=== PATIENT | female | born 1970 | race African-American/Black ===

== ENCOUNTER 2016-06-25 01:40 | Emergency (ER) | payer OTHER ==
[~2016-06-25] VITALS: Ht 160 cm; Wt 91.2 kg
[~2016-06-25 01:40] MED LIST: PEPCID; TYLENOL
[2016-06-25 01:47] VITALS: BP 120/76
--- NOTE | 2016-06-25 04:20 | NUR ---
PATIENT LEFT WITHOUT BEING SEEN BY DR. Domínguez. NO FURTHER CARE PROVIDED FOR PATIENT.
== END 2016-06-25 04:20 | disposition left against medical advice (07) ==
LOC: MED 01:40
DX: M54.5 Low back pain (principal); Z53.21 Procedure and treatment not carried out due to patient leaving prior to being seen by health care provider

== ENCOUNTER 2016-06-25 12:05 | Emergency (ER) | payer OTHER ==
[~2016-06-25] VITALS: Ht 160 cm; Wt 90.7 kg
[2016-06-25 12:31] VITALS: BP 120/51
--- NOTE | 2016-06-25 12:46 | NUR ---
Patient taken to bed 08 via wheelchair per tech.
--- NOTE | 2016-06-25 12:50 | NUR ---
PATIENT PRESENTS TO ED WITH C/O MEDIAL ABD PAIN AND LOWER BACK PAIN X2 WEEKS WITH VOMITING; DENIES DIARRHEA; SKIN IS PINK/WARM/DRY; AAOX4 WITH EVEN AND STEADY GAIT; LUNGS CLEAR BL; HR EVEN AND REGULAR; PT DENIES ANY FEVER, CP, SOB, OR COUGH AT THIS TIME; PATIENT STATES PAIN OF 10/10 AT THIS TIME; VSS; PATIENT POSITIONED FOR COMFORT; HOB ELEVATED; BEDRAILS UP X2; BED DOWN. ER MD MADE AWARE OF PT STATUS.
--- NOTE | 2016-06-25 13:12 | NUR ---
Dr. Howard evaluating patient at bedside.
[2016-06-25] MEDS ORDERED: KETOROLAC 60 MG/2 ML VIAL IM ONE (13:15)
[2016-06-25] MEDS ORDERED: ONDANSETRON 4 MG ODT PO ONE (13:15)
--- NOTE | 2016-06-25 13:26 | NUR ---
PT UNABLE TO PROVIDE URINE SAMPLE AT THIS TIME
--- NOTE | 2016-06-25 13:45 | NUR ---
POST TORADOL ADMINISTRATION DR WILLIAMSON NOTIFIED OF PT STILL C/O PAIN 12/15, IV WILL BE STARTED PER
[2016-06-25] MEDS ORDERED: MORPHINE SULFATE 4 MG/ML SYR IVP ONE (13:50)
[2016-06-25] MEDS ORDERED: NACL 0.9% 1,000 ML IV ONE (13:50)
--- NOTE | 2016-06-25 14:51 | NUR ---
AAO PT AMBULATES TO THE RESTROOM FOR URINE SAMPLE
--- NOTE | 2016-06-25 15:08 | NUR ---
PER PT "FEELS BETTER", NO C/O PAIN OR N/V, WANTS TO FINISH FLUIDS, NOTIFIED
[2016-06-25 15:46] VITALS: BP 129/86
--- NOTE | 2016-06-25 15:46 | NUR ---
Patient discharged with v/s stable. Written and verbal after care instructions given and explained. Patient alert, oriented and verbalized understanding of instructions. Ambulatory with steady gait. All questions addressed prior to discharge. ID band removed. Patient advised to follow up with PMD. Rx of MOTRIN,ZOFRAN,NORCO given. Patient educated on indication of medication including possible reaction and side effects. Opportunity to ask questions provided and answered.
== END 2016-06-25 15:46 | disposition home or self-care (01) ==
LOC: MED 12:05
DX: M54.5 Low back pain (principal); R10.13 Epigastric pain; R11.2 Nausea with vomiting, unspecified
CPT/HCPCS: 81002; 81025; 96361; 96372; 96374; 99284; J1885; J2270; J7030; S0119

== ENCOUNTER 2017-10-10 10:16 | Emergency (ER) | payer OTHER ==
[~2017-10-10] VITALS: Ht 160 cm; Wt 86.6 kg
[2017-10-10 10:19] VITALS: BP 128/73
--- NOTE | 2017-10-10 10:19 | NUR ---
PT AMBULATES TO BED 2
--- NOTE | 2017-10-10 10:30 | NUR ---
c/o epigastric pain with n/v x 2 wk---unable to tolerate po's last bm this am no straining , no watery/loose stools.; SKIN IS INTACT, PINK/WARM/DRY; AAOX4, PERRL, WITH EVEN AND STEADY GAIT; LUNGS CLEAR BL, BREATHING UNLABORED; HR EVEN AND REGULAR, BL PERIPHERAL PULSES PRESENT; BS ACTIVE X4, NO TENDERNESS TO PALPATION, NO HEPATOSPLENOMEGALLY PALPATED, RESONANT TO PERCUSSION; PT DENIES ANY FEVER, CP, SOB, OR COUGH AT THIS TIME; PT STATES 8/10 PAIN EPIGASTRIC AT THIS TIME; VSS; PATIENT POSITIONED FOR COMFORT; HOB ELEVATED; BEDRAILS UP X2; BED DOWN.
--- NOTE | 2017-10-10 10:43 | NUR ---
DR MICHAEL EVALUATING PT AT BEDSIDE
[2017-10-10] MEDS ORDERED: NACL 0.9% 1,000 ML IV SCH (11:01)
[2017-10-10] MEDS ORDERED: FAMOTIDINE 20 MG/2 ML VIAL IVP ONE (11:05)
[2017-10-10] MEDS ORDERED: MORPHINE SULFATE 4 MG/ML SYR IVP ONE ×2 (11:05→12:15)
[2017-10-10] MEDS ORDERED: ONDANSETRON 4 MG/2 ML VIAL IVP ONE ×2 (11:05→12:15)
--- NOTE | 2017-10-10 12:00 | NUR ---
edmd aware pt still vomiting and in pain
--- NOTE | 2017-10-10 12:42 | NUR ---
edmd made aware pt still having discomfort in abd
[2017-10-10 13:01] LABS: BASOPHILS # (AUTO) 0.1 K/uL (0.00-0.22); BASOPHILS % (AUTO) 0.8 % (0.0-2.0); EOSINOPHILS % (AUTO) 0.1 % (0.0-4.0); HEMATOCRIT 43.2 % (36-48); HEMOGLOBIN 14.2 g/dL (12.0-16.0); LYMPHOCYTES # (AUTO) 3.5 K/uL (2.5-16.5); LYMPHOCYTES % (AUTO) 27.2 % (20.5-51.1); MEAN CORPUSCULAR HEMOGLOBIN 28 pg (27-31); MEAN CORPUSCULAR HGB CONC 33 g/dL (33-37); MEAN CORPUSCULAR VOLUME 85.1 fL (80-94); MONOCYTES # (AUTO) 1.2 K/uL (0.8-1.0); MONOCYTES % (AUTO) 9.7 % (1.7-9.3); NEUTROPHILS # (AUTO) 7.9 K/uL (1.8-7.7); NEUTROPHILS % (AUTO) 62.2 % (42.2-75.2); PLATELET COUNT (AUTO) 263 K/uL (140-450); RED BLOOD CELL COUNT(AUTO) 5.07 MIL/uL (4.20-5.40); RED CELL DISTRIBUTION WIDTH 14.9 % (11.6-13.7); WHITE BLOOD COUNT (AUTO) 12.7 K/uL (4.8-10.8)
[2017-10-10] MEDS ORDERED: HYDROmorphone PFS 2 MG/ML SYR IVP ONE (13:10)
[2017-10-10 13:19] LABS: ANION GAP 17.7 (8-16); CREATININE 1.2 mg/dL (0.6-1.3); POTASSIUM 3.7 mmol/L (3.5-5.1)
[2017-10-10 13:25] LABS: APPEARANCE,URINE HAZY (CLEAR); BILIRUBIN,URINE NEGATIVE (NEGATIVE); BLOOD, URINE 1+ (NEGATIVE); COLOR,URINE YELLOW (YELLOW); LEUKOCYTE ESTERASE ,URINE NEGATIVE (NEGATIVE); NITRITE, URINE NEGATIVE (NEGATIVE); UGLUCOSE NEGATIVE (NEGATIVE)
[2017-10-10 13:34] LABS: ALBUMIN 3.7 g/dL (3.4-5.0); TOTAL BILIRUBIN 0.5 mg/dL (0.0-1.0)
[2017-10-10 13:37] LABS: RBC,URINE 3-10 (FEW) /HPF (0-5); WBC,URINE 0-5 (RARE) /HPF (0-5)
[2017-10-10] MEDS ORDERED: METOCLOPRAMIDE 10 MG/2 ML INJ VIAL IVP ONE (14:05)
--- NOTE | 2017-10-10 14:51 | NUR ---
PATIENT TAKEN TO CT
[2017-10-10 15:45] VITALS: BP 129/88
--- NOTE | 2017-10-10 15:46 | NUR ---
Patient discharged with v/s stable. Written and verbal after care instructions given and explained. Patient alert, oriented and verbalized understanding of instructions. Ambulatory with steady gait. All questions addressed prior to discharge. ID band removed. Patient advised to follow up with PMD. Rx of ZOFRAN, NORCO, AND OMEPRAZOLE given. Patient educated on indication of medication including possible reaction and side effects. Opportunity to ask questions provided and answered.
== END 2017-10-10 15:46 | disposition home or self-care (01) ==
LOC: MED 10:16
DX: R10.13 Epigastric pain (principal); R11.2 Nausea with vomiting, unspecified
CPT/HCPCS: 36415; 74176; 80053; 81001; 81025; 83690; 85025; 96361; 96374; 96375; 96376; 99285; J1170; J2270; J2405; J2765; J3490; J7030; 96372; 99284

== ENCOUNTER 2018-04-16 21:45 | Emergency (ER) | payer OTHER ==
[~2018-04-16] VITALS: Ht 160 cm; Wt 90.7 kg
[2018-04-16 22:05] VITALS: BP 124/76
--- NOTE | 2018-04-16 23:18 | NUR ---
PT AMBULATED TO BED 9.
--- NOTE | 2018-04-16 23:27 | NUR ---
47/ F BIB SELF, C/O OF VOMITING X8 EPISODES X3 DAYS. PATIENT STATES, "I CANT KEEP FOOD OR WATER DOWN." PATIENT REPORTS DIARRHEA YESTERDAY X1. DENIES PAIN AT THIS TIME, HAD PAIN EARLIER IN THE DAY, PAIN WAS SHARP INTERMITTENT 10/10. ACTIVE BOWEL SOUNDS X4 QUADRANTS. BREATHING IS EVEN AND UNLABORED, CLEAR LUNGS SOUNDS, DENIES SOB OR CP. DENIES DYSURIA. A0X4, CLEAR SPEECH, STEADY GAIT, DENIES WEAKNESS OR DIZZINES. SAFETY PRECAUTIONS IN PLACE, AWAITING MD, WILL CONTINUE TO MONITOR.
[2018-04-16] MEDS ORDERED: ONDANSETRON 4 MG ODT PO ONE (23:55)
[2018-04-17] MEDS ORDERED: DICYCLOMINE HCL LIQUID 20 MG, ALUMINUM HYD/MAG/SIMETHICONE 30 ML, LIDOCAINE VISCOUS 2% ... PO ONE ×3 (00:15)
--- NOTE | 2018-04-17 00:30 | NUR ---
PT SITTING UP IN BED, VITALS STABLE. PT PAIN LEVEL IS 7/10 AT THIS TIME. ER MD MADE AWARE.
[2018-04-17] MEDS ORDERED: ONDANSETRON 4 MG/2 ML VIAL IVP ONE (00:35)
[2018-04-17] MEDS ORDERED: NACL 0.9% 1,000 ML IV ONE (00:35)
[2018-04-17] MEDS ORDERED: KETOROLAC 30 MG/ML VIAL IVP ONE (00:35)
[2018-04-17] MEDS ORDERED: MORPHINE SULFATE 4 MG/ML SYR IVP ONE (01:20)
--- NOTE | 2018-04-17 01:30 | NUR ---
PT IS SLYING IN BED, VITALS ARE STABLE.
[2018-04-17 01:46] LABS: BASOPHILS # (AUTO) 0.1 K/uL (0.00-0.22); BASOPHILS % (AUTO) 0.9 % (0.0-2.0); EOSINOPHILS % (AUTO) 0.1 % (0.0-4.0); HEMATOCRIT 42.5 % (36-48); HEMOGLOBIN 13.9 g/dL (12.0-16.0); LYMPHOCYTES # (AUTO) 3.7 K/uL (2.5-16.5); LYMPHOCYTES % (AUTO) 39.9 % (20.5-51.1); MEAN CORPUSCULAR HEMOGLOBIN 28 pg (27-31); MEAN CORPUSCULAR HGB CONC 33 g/dL (33-37); MEAN CORPUSCULAR VOLUME 85.6 fL (80-94); MONOCYTES # (AUTO) 0.7 K/uL (0.8-1.0); MONOCYTES % (AUTO) 7.1 % (1.7-9.3); NEUTROPHILS # (AUTO) 4.8 K/uL (1.8-7.7); PLATELET COUNT (AUTO) 314 K/uL (140-450); RED BLOOD CELL COUNT(AUTO) 4.97 MIL/uL (4.20-5.40); RED CELL DISTRIBUTION WIDTH 15.3 % (11.6-13.7); WHITE BLOOD COUNT (AUTO) 9.2 K/uL (4.8-10.8)
[2018-04-17 01:53] LABS: ANION GAP 10.5 (8-16); CARBON DIOXIDE 26.2 mmol/L (21-32); CREATININE 0.9 mg/dL (0.6-1.3); POTASSIUM 3.7 mmol/L (3.5-5.1)
[2018-04-17 01:58] LABS: ALBUMIN 3.7 g/dL (3.4-5.0); TOTAL BILIRUBIN 0.5 mg/dL (0.0-1.0)
[2018-04-17 02:30] VITALS: BP 128/74
--- NOTE | 2018-04-17 02:30 | NUR ---
Patient discharged with v/s stable. Written and verbal after care instructions given and explained. Patient alert, oriented and verbalized understanding of instructions. Ambulatory with steady gait. All questions addressed prior to discharge. ID band removed. Patient advised to follow up with PMD. Rx of PHENERGAN WAS given. Patient educated on indication of medication including possible reaction and side effects. Opportunity to ask questions provided and answered.
== END 2018-04-17 02:30 | disposition home or self-care (01) ==
LOC: MED 21:45
DX: R10.13 Epigastric pain (principal); R11.2 Nausea with vomiting, unspecified; R19.7 Diarrhea, unspecified
CPT/HCPCS: 36415; 80053; 81002; 81025; 83690; 85025; 96374; 96375; 99283; J1885; J2270; J2405; J7030; Q0162

== ENCOUNTER 2019-07-13 08:55 | Emergency (ER) | payer MEDICAID, OTHER ==
[~2019-07-13] VITALS: Ht 160 cm; Wt 93.9 kg
[2019-07-13 09:03] VITALS: BP 113/75
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
--- NOTE | 2019-07-13 09:47 | NUR ---
Dr. Barker is evaluating the patient at bedside.
[2019-07-13 10:19] VITALS: BP 113/75
--- NOTE | 2019-07-13 10:20 | NUR ---
Patient discharged with v/s stable. Written and verbal after care instructions given and explained. Patient alert, oriented and verbalized understanding of instructions. Ambulatory with steady gait. All questions addressed prior to discharge. ID band removed. Patient advised to follow up with PMD. Rx of FLEXERIL given. Patient educated on indication of medication including possible reaction and side effects. Opportunity to ask questions provided and answered.
== END 2019-07-13 10:20 | disposition home or self-care (01) ==
LOC: MED 08:55
DX: S33.5XXA Sprain of ligaments of lumbar spine, initial encounter (principal); Z98.890 Other specified postprocedural states; V49.60XA Unspecified car occupant injured in collision with unspecified motor vehicles in traffic accident, initial encounter; Y93.89 Activity, other specified; Y92.89 Other specified places as the place of occurrence of the external cause; Y99.8 Other external cause status
CPT/HCPCS: 99283

== ENCOUNTER 2021-08-07 07:44 | Emergency (ER) | payer MEDICAID ==
[~2021-08-07] VITALS: Ht 157.5 cm; Wt 111.1 kg
[2021-08-07 07:54] VITALS: BP 143/63
--- NOTE | 2021-08-07 07:59 | NUR ---
VILMA. HANDED ON URINE CUP.
--- NOTE | 2021-08-07 08:08 | NUR ---
PT CAN'T PROVIDE URINE AT THIS TIME.
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
--- NOTE | 2021-08-07 08:44 | NUR ---
PT SIVA TO [facility]
[2021-08-07] MEDS ORDERED: KETOROLAC 60 MG/2 ML VIAL IM ONE (09:20)
[2021-08-07] MEDS ORDERED: ONDANSETRON 4 MG ODT PO ONE (09:20)
--- NOTE | 2021-08-07 09:29 | NUR ---
PT TAKEN TO CT.
[2021-08-07 09:50] LABS: BASOPHILS # (AUTO) 0.1 K/uL (0.00-0.22); BASOPHILS % (AUTO) 0.8 % (0.0-2.0); EOSINOPHILS % (AUTO) 0.3 % (0.0-4.0); HEMATOCRIT 42.3 % (36-48); HEMOGLOBIN 13.9 g/dL (12.0-16.0); LYMPHOCYTES # (AUTO) 3.2 K/uL (2.5-16.5); LYMPHOCYTES % (AUTO) 20.4 % (20.5-51.1); MEAN CORPUSCULAR HEMOGLOBIN 28 pg (27-31); MEAN CORPUSCULAR HGB CONC 33 g/dL (33-37); MEAN CORPUSCULAR VOLUME 83.9 fL (80-94); MONOCYTES # (AUTO) 1.4 K/uL (0.8-1.0); MONOCYTES % (AUTO) 9.3 % (1.7-9.3); NEUTROPHILS # (AUTO) 10.8 K/uL (1.8-7.7); NEUTROPHILS % (AUTO) 69.2 % (42.2-75.2); PLATELET COUNT (AUTO) 362 K/uL (140-450); RED BLOOD CELL COUNT(AUTO) 5.04 MIL/uL (4.20-5.40); RED CELL DISTRIBUTION WIDTH 14.6 % (11.6-13.7); WHITE BLOOD COUNT (AUTO) 15.5 K/uL (4.8-10.8)
[2021-08-07] MEDS ORDERED: METR-435 PO (10:10)
[2021-08-07] MEDS ORDERED: ONDA8TAB87 PO (10:10)
[2021-08-07] MEDS ORDERED: CIPR500T4 PO (10:10)
[2021-08-07] MEDS ORDERED: IBUP-2213 PO (10:10)
[2021-08-07 10:32] LABS: ALBUMIN 3.4 g/dL (3.4-5.0); ANION GAP 14.6 (8-16); CARBON DIOXIDE 24.4 mmol/L (21-32); CREATININE 0.8 mg/dL (0.6-1.3); TOTAL BILIRUBIN 0.4 mg/dL (0.0-1.0)
--- NOTE | 2021-08-07 10:40 | NUR ---
Patient discharged with v/s stable. Written and verbal after care instructions given and explained. Patient alert, oriented and verbalized understanding of instructions. Ambulatory with steady gait. All questions addressed prior to discharge. ID band removed. Patient advised to follow up with PMD. Rx of ZOFRAN,CIPRO,IBUPROFEN & METRONIDAZILE given. Patient educated on indication of medication including possible reaction and side effects. Opportunity to ask questions provided and answered.
[2021-08-07 10:44] VITALS: BP 129/80
== END 2021-08-07 10:40 | disposition home or self-care (01) ==
LOC: MED 07:44
DX: K57.92 Diverticulitis of intestine, part unspecified, without perforation or abscess without bleeding (principal); R11.2 Nausea with vomiting, unspecified; Z79.899 Other long term (current) drug therapy; Z98.890 Other specified postprocedural states
CPT/HCPCS: 36415; 74176; 80053; 81002; 81025; 83690; 85025; 96372; 99284; J1885; Q0162

== ENCOUNTER 2021-09-13 12:11 | Emergency (ER) | payer MEDICAID ==
[~2021-09-13] VITALS: Ht 160 cm; Wt 96.7 kg
[~2021-09-13 12:11] MED LIST changes: +CIPR500T4 PO; +IBUP-2213 PO; +METR-435 PO; +ONDA8TAB87 PO; -PEPCID; -TYLENOL
[2021-09-13 12:13] VITALS: BP 156/90
--- NOTE | 2021-09-13 12:18 | NUR ---
Adri castillo in [facility] - 09/13/21 at 1220 by [facility]1 PT AMB TO BED 11.
--- NOTE | 2021-09-13 12:20 | NUR ---
PT SIVA TO [facility]
[2021-09-13] MEDS ORDERED: KETOROLAC 30 MG/ML VIAL IVP ONE (12:35)
[2021-09-13] MEDS ORDERED: ONDANSETRON 4 MG/2 ML VIAL IVP ONE (12:35)
[2021-09-13] MEDS ORDERED: NACL 0.9% 1,000 ML IV SCH (12:35)
--- NOTE | 2021-09-13 12:37 | NUR ---
LAB AT CHAIR SIDE- BLOOD AND UA SENT TO LAB
--- NOTE | 2021-09-13 13:10 | NUR ---
Pt coming from home ambulatory with steady gait. Pt is A&Ox4. Pt c/o abdominal pain 10/10 nausea and vomiting x3 weeks. No trauma. Skin intact. VSS. No chest pain and no sob. NKA. No known medical conditions.
--- NOTE | 2021-09-13 13:16 | NUR ---
#24g IV placed on left hand using aseptic technique no infiltration noted. Pt has no c/o.
[2021-09-13 13:23] LABS: BASOPHILS % (AUTO) 0.5 % (0.0-2.0); EOSINOPHILS # (AUTO) 0.1 K/uL (0-0.4); EOSINOPHILS % (AUTO) 0.6 % (0.0-4.0); HEMATOCRIT 43.7 % (36-48); HEMOGLOBIN 14.4 g/dL (12.0-16.0); LYMPHOCYTES % (AUTO) 28.1 % (20.5-51.1); MEAN CORPUSCULAR HEMOGLOBIN 28 pg (27-31); MEAN CORPUSCULAR HGB CONC 33 g/dL (33-37); MEAN CORPUSCULAR VOLUME 83.8 fL (80-94); MONOCYTES # (AUTO) 0.7 K/uL (0.8-1.0); MONOCYTES % (AUTO) 6.8 % (1.7-9.3); NEUTROPHILS # (AUTO) 6.9 K/uL (1.8-7.7); PLATELET COUNT (AUTO) 367 K/uL (140-450); RED BLOOD CELL COUNT(AUTO) 5.22 MIL/uL (4.20-5.40); RED CELL DISTRIBUTION WIDTH 15.7 % (11.6-13.7); WHITE BLOOD COUNT (AUTO) 10.7 K/uL (4.8-10.8)
[2021-09-13] MEDS ORDERED: MORPHINE SULFATE 4 MG/ML SYR IVP ONE ×2 (13:25→14:05)
[2021-09-13 13:27] LABS: APPEARANCE,URINE SL CLOUDY (CLEAR); BILIRUBIN,URINE NEGATIVE (NEGATIVE); BLOOD, URINE TRACE-I (NEGATIVE); COLOR,URINE AMBER (YELLOW); LEUKOCYTE ESTERASE ,URINE 2+ (NEGATIVE); NITRITE, URINE NEGATIVE (NEGATIVE); UGLUCOSE NEGATIVE (NEGATIVE)
--- NOTE | 2021-09-13 13:30 | NUR ---
Dr. Summers at bedside examining pt.
[2021-09-13 13:32] LABS: ALBUMIN 3.7 g/dL (3.4-5.0); ANION GAP 12.8 (8-16); CARBON DIOXIDE 24.4 mmol/L (21-32); CREATININE 0.8 mg/dL (0.6-1.3); POTASSIUM 4.2 mmol/L (3.5-5.1); TOTAL BILIRUBIN 0.3 mg/dL (0.0-1.0)
[2021-09-13] MEDS ORDERED: diphenhydrAMINE 50 MG/ML VIAL IVP ONE (13:35)
[2021-09-13] MEDS ORDERED: METOCLOPRAMIDE 10 MG/2 ML INJ VIAL IVP ONE (13:35)
[2021-09-13 13:55] LABS: OTHER CASTS, URINE MIXED CELL CASTS 1+ /LPF (None Seen)
[2021-09-13] MEDS ORDERED: PANTOPRAZOLE 40 MG INJ VIAL IVP ONE (14:05)
[2021-09-13] MEDS ORDERED: ONDA-188 PO (15:12)
[2021-09-13] MEDS ORDERED: PANT40EC PO (15:12)
[2021-09-13] MEDS ORDERED: TRAM50TA1 PO (15:12)
[2021-09-13] MEDS ORDERED: ACET-10509 PO (15:12)
[2021-09-13] MEDS ORDERED: MORPHINE SULFATE 4 MG/ML SYR ONE (15:16)
[2021-09-13] MEDS ORDERED: HALOPERIDOL IM 5 MG/ML VIAL IVP ONE (15:25)
[2021-09-13] MEDS ORDERED: HALOPERIDOL IM 5 MG/ML VIAL ONE (15:29)
[2021-09-13 16:01] VITALS: BP 139/64
--- NOTE | 2021-09-13 16:02 | NUR ---
Patient discharged with v/s stable. Written and verbal after care instructions given and explained. Patient verbalized understanding. Wheel Chair Assisted with to car. All questions addressed prior to discharge. Advised to follow up with PMD.
== END 2021-09-13 16:01 | disposition home or self-care (01) ==
LOC: MED 12:11
DX: R10.13 Epigastric pain (principal); R11.2 Nausea with vomiting, unspecified; Z90.49 Acquired absence of other specified parts of digestive tract; Z79.899 Other long term (current) drug therapy
CPT/HCPCS: 36415; 80053; 81001; 81025; 83690; 85025; 87086; 96361; 96374; 96375; 96376; 99284; C9113; J1200; J1630; J1885; J2270; J2405; J2765; J7030

== ENCOUNTER 2023-09-01 10:41 | Emergency (ER) | payer MEDICAID ==
[~2023-09-01] VITALS: Ht 160 cm; Wt 100.2 kg
[~2023-09-01 10:41] MED LIST changes: +ACET-10509 PO; +ONDA-188 PO; +PANT40EC PO; +TRAM-748 PO
[2023-09-01 10:46] VITALS: BP 118/73; PULSE 89; RESP 17; TEMP 97.8; O2SAT 98
[2023-09-01] MEDS ORDERED: CEPH-588 PO (13:27)
[2023-09-01] MEDS ORDERED: IBUP-2218 PO (13:27)
[2023-09-01] MEDS ORDERED: ACET-10509 PO (13:27)
[2023-09-01 13:38] VITALS: BP 121/73; PULSE 88; RESP 16; TEMP 98; O2SAT 98
[2023-09-01 14:04] LABS: APPEARANCE,URINE TURBID (CLEAR); COLOR,URINE YELLOW (YELLOW); PROTEIN,URINE NEGATIVE (NEGATIVE)
[2023-09-01 14:05] LABS: BILIRUBIN,URINE NEGATIVE (NEGATIVE); BLOOD, URINE NEGATIVE (NEGATIVE); LEUKOCYTE ESTERASE ,URINE NEGATIVE (NEGATIVE); NITRITE, URINE NEGATIVE (NEGATIVE); UGLUCOSE NEGATIVE (NEGATIVE); UROBILINOGEN,URINE 0.2 EU/dL (0.2 - 1)
[2023-09-01 14:23] LABS: BACTERIA,URINE 0-2 /HPF (None Seen); RBC,URINE 0 /HPF (0-5); SQUAMOUS EPITHELIAL CELL,UR 4-10 (MOD) /LPF (0-3 (FEW)); URINE AMORPHOUS URATE 4+ /HPF (None Seen); WBC,URINE 0 /HPF (0-5)
== END 2023-09-01 13:38 | disposition home or self-care (01) ==
LOC: MED 10:41
DX: R10.30 Lower abdominal pain, unspecified (principal); Z79.1 Long term (current) use of non-steroidal anti-inflammatories (NSAID); Z79.2 Long term (current) use of antibiotics; Z79.899 Other long term (current) drug therapy
CPT/HCPCS: 81001; 99283

== ENCOUNTER 2023-09-04 09:41 | Emergency (ER) | payer MEDICAID ==
[~2023-09-04] VITALS: Ht 160 cm; Wt 100.7 kg
[~2023-09-04 09:41] MED LIST changes: +CEPH-588 PO; +IBUP-2218 PO
[2023-09-04 09:49] VITALS: BP 107/74; PULSE 95; RESP 18; TEMP 97.5; O2SAT 96
[2023-09-04] MEDS: ONDANSETRON 4 MG/2 ML VIAL IVP ONE (10:27)
[2023-09-04] MEDS: NACL 0.9% 1,000 ML IV ONE (10:27)
[2023-09-04 10:33] LABS: APPEARANCE,URINE CLEAR (CLEAR); BILIRUBIN,URINE NEGATIVE (NEGATIVE); BLOOD, URINE 1+ (NEGATIVE); COLOR,URINE YELLOW (YELLOW); LEUKOCYTE ESTERASE ,URINE NEGATIVE (NEGATIVE); NITRITE, URINE NEGATIVE (NEGATIVE); PROTEIN,URINE 1+ (NEGATIVE); UGLUCOSE NEGATIVE (NEGATIVE); UROBILINOGEN,URINE 0.2 EU/dL (0.2 - 1)
[2023-09-04] MEDS: MORPHINE SULFATE 4 MG/ML SYR IVP ONE (10:42)
[2023-09-04 10:48] LABS: BASOPHILS # (AUTO) 0.1 K/uL (0.00-0.22); BASOPHILS % (AUTO) 0.8 % (0.0-2.0); EOSINOPHILS # (AUTO) 0.1 K/uL (0-0.4); EOSINOPHILS % (AUTO) 0.4 % (0.0-4.0); HEMATOCRIT 43.7 % (36-48); HEMOGLOBIN 14.4 g/dL (12.0-16.0); LYMPHOCYTES # (AUTO) 2.5 K/uL (2.5-16.5); LYMPHOCYTES % (AUTO) 17.8 % (20.5-51.1); MEAN CORPUSCULAR HEMOGLOBIN 27 pg (27-31); MEAN CORPUSCULAR HGB CONC 33 g/dL (33-37); MEAN CORPUSCULAR VOLUME 82.9 fL (80-94); MONOCYTES # (AUTO) 1.1 K/uL (0.8-1.0); MONOCYTES % (AUTO) 7.9 % (1.7-9.3); NEUTROPHILS # (AUTO) 10.2 K/uL (1.8-7.7); NEUTROPHILS % (AUTO) 73.1 % (42.2-75.2); PLATELET COUNT (AUTO) 383 K/uL (140-450); RED BLOOD CELL COUNT(AUTO) 5.27 MIL/uL (4.20-5.40); RED CELL DISTRIBUTION WIDTH 14.7 % (11.6-13.7)
[2023-09-04 11:02] LABS: ANION GAP 15.6 (8-16); CALCIUM 9.8 mg/dL (8.5-10.1); CARBON DIOXIDE 24.2 mmol/L (21-32); CREATININE 1.1 mg/dL (0.6-1.3); POTASSIUM 3.8 mmol/L (3.5-5.1)
[2023-09-04 11:08] LABS: ALBUMIN 3.4 g/dL (3.4-5.0); BILIRUBIN,DIRECT 0.1 mg/dL (0.0-0.3); TOTAL BILIRUBIN 0.3 mg/dL (0.0-1.0)
[2023-09-04 11:32] LABS: RBC,URINE 0-5 /HPF (0-5); WBC,URINE 0-5 /HPF (0-5)
[2023-09-04 11:33] LABS: BACTERIA,URINE None Seen /HPF (None Seen); HYALINE CASTS, URINE 0-10 /LPF (None Seen); SQUAMOUS EPITHELIAL CELL,UR >10 (MANY) /LPF (0-3 (FEW))
[2023-09-04 11:34] LABS: COARSE GRANULAR CASTS,URINE 0-10 /LPF (None Seen)
[2023-09-04] MEDS ORDERED: METR-435 PO (11:56)
[2023-09-04] MEDS ORDERED: CIPR500T4 PO (11:56)
[2023-09-04 12:04] VITALS: BP 139/75; PULSE 76; RESP 16; O2SAT 98
== END 2023-09-04 12:03 | disposition home or self-care (01) ==
LOC: MED 09:41
DX: K57.32 Diverticulitis of large intestine without perforation or abscess without bleeding (principal); Z90.49 Acquired absence of other specified parts of digestive tract; Z98.890 Other specified postprocedural states; Z79.899 Other long term (current) drug therapy
CPT/HCPCS: 36415; 74176; 80048; 80076; 81001; 81025; 83690; 85025; 96361; 96374; 96375; 99285; J2270; J2405; J7030

== ENCOUNTER 2023-12-20 13:50 | Emergency (ER) | payer MEDICAID, OTHER ==
[~2023-12-20] VITALS: Ht 157.5 cm; Wt 93.9 kg
[~2023-12-20 13:50] MED LIST changes: -ACET-10509 PO; +ACET500T99 PO
[2023-12-20 14:08] VITALS: BP 97/59; PULSE 84; RESP 16; TEMP 97.2; O2SAT 99
[2023-12-20] MEDS: DICYCLOMINE 10 MG CAP PO ONE (15:32)
[2023-12-20] MEDS: ONDANSETRON 4 MG ODT PO ONE (15:33)
[2023-12-20] MEDS: ALUMINUM HYD/MAG/SIMETHICONE 30 ML UDC PO ONE (15:33)
[2023-12-20 16:34] LABS: APPEARANCE,URINE CLEAR (CLEAR); BILIRUBIN,URINE NEGATIVE (NEGATIVE); BLOOD, URINE TRACE-I (NEGATIVE); COLOR,URINE YELLOW (YELLOW); LEUKOCYTE ESTERASE ,URINE NEGATIVE (NEGATIVE); NITRITE, URINE NEGATIVE (NEGATIVE); PROTEIN,URINE NEGATIVE (NEGATIVE); UGLUCOSE NEGATIVE (NEGATIVE); UROBILINOGEN,URINE 0.2 EU/dL (0.2 - 1)
[2023-12-20 16:37] LABS: BACTERIA,URINE 10-30 (MOD) /HPF (None Seen); MUCUS,URINE 2+ /LPF (None Seen); RBC,URINE 0-5 /HPF (0-5); SQUAMOUS EPITHELIAL CELL,UR 4-10 (MOD) /LPF (0-3 (FEW)); WBC,URINE 0-5 /HPF (0-5)
[2023-12-20] MEDS: diphenhydrAMINE 50 MG/ML VIAL IVP ONE (16:38)
[2023-12-20] MEDS: METOCLOPRAMIDE 10 MG/2 ML INJ VIAL IVP ONE (16:38)
[2023-12-20] MEDS ORDERED: ONDA-188 PO (17:09)
[2023-12-20] MEDS ORDERED: BEN10 PO (17:14)
[2023-12-20] MEDS: NACL 0.9% 1,000 ML IV ONE (17:35)
[2023-12-20 17:36] VITALS: BP 113/69; PULSE 80; RESP 18; TEMP 98; O2SAT 99
== END 2023-12-20 17:37 | disposition home or self-care (01) ==
LOC: MED 13:50
DX: A08.4 Viral intestinal infection, unspecified (principal); Z79.899 Other long term (current) drug therapy; Z90.49 Acquired absence of other specified parts of digestive tract; Z98.890 Other specified postprocedural states
CPT/HCPCS: 81001; 81025; 87086; 96361; 96374; 96375; 99284; J1200; J2765; Q0162; J7030